=== PATIENT | female | born 1955 | race Caucasian/White ===

== ENCOUNTER 2018-11-12 06:27 | Day surgery (SDC) | payer BC ==
[~2018-11-12] VITALS: Ht 167.6 cm; Wt 81.8 kg
[2018-11-12 07:11] VITALS: Ht 167.6 cm; Wt 81.8 kg
[2018-11-12] MEDS ORDERED: ZOC10 PO (07:23)
[2018-11-12] MEDS ORDERED: MELO7.5O PO (07:23)
[2018-11-12] MEDS ORDERED: LEVO100T8 PO (07:23)
[2018-11-12] MEDS ORDERED: FOLI-49 PO (07:23)
[2018-11-12] MEDS ORDERED: HYDR12.58 PO (07:23)
[2018-11-12] MEDS ORDERED: METF100010 PO (07:23)
[2018-11-12] MEDS ORDERED: METO-448 PO (07:23)
--- NOTE | 2018-11-12 07:26 | PREAC ---
Date/Time of Note Date/Time of Note DATE: 11/12/18 TIME: 07:25 Anesthesia Eval and Record Evaluation Time Pre-Procedure Interview DATE: 11/12/18 TIME: 07:25 Age 63 Sex female NPO: 8 hrs Preoperative diagnosis colon cancer screening Planned procedure colonoscopy Past Medical History Past Medical History: Includes Cardio: HTN, Dyslipidemia Endo: Diabetes Musculoskeletal: Osteoarthritis Surgery & Anesthesia Issues No known issue Meds Anticoagulation: No Beta Shelia within 24 hr: Yes Reason Beta Shelia not given: Bradycarida, Hypotension Reported Medications Meloxicam* (Meloxicam*) 7.5 Mg/5 Ml Oral.susp, 7.5 MG PO DAILY, #150 ML 11/12/18 Hydrochlorothiazide* (Hydrochlorothiazide*) 12.5 Mg Tablet, 12.5 MG PO DAILY, #30 TAB 11/12/18 Folic Acid* (Folic Acid*) 1 Mg Tablet, 1 MG PO DAILY, TAB 11/12/18 Levothyroxine Sodium* (Levothyroxine Sodium*) 100 Mcg Tablet, 100 MCG PO BEFORE BREAKFAST, #30 TAB 11/12/18 Metoprolol Tartrate* (Lopressor*) 25 Mg Tab, 25 MG PO DAILY, #60 TAB 11/12/18 Simvastatin (Simvastatin) 10 Mg Tablet, 10 MG PO QHS, #30 TAB 11/12/18 Metformin Hcl* (Metformin Hcl*) 1,000 Mg Tablet, 1000 MG PO WITH BREAKFAST DINNE, #30 TAB 11/12/18 Meds reviewed: Yes Allergies Coded Allergies: No Known Allergies (Verified Allergy, Unknown, 10/02/07) Allergies Reviewed: Yes Labs/Studies Labs Reviewed: Reviewed by anesthesiologist test: N/A Pre-procedure Exam Airway: Adequate mouth opening, Adequate thyromental dist Mallampati: Mallampati II Teeth: Normal Lung: Normal Heart: Normal ASA Physical Status ASA physical status: 2 Emergency: None Planned Anesthetic General/MAC: Mask Planned Pain Management Parenteral pain med Pre-operative Attestations Prior to commencing anesthesia and surgery, the patient was re-evaluated, there was verification of: *The patient's identity *The results of appropriate recent lab work and preoperative vital signs *The above evaluation not changing prior to induction *Anesthetic plan, risk benefits, alternative and complications discussed with pa tient/family; questions answered; patient/family understands, accepts and wishes to proceed. Show Card Writer used MANUEL MORTON MD Nov 12, 2018 07:26
[2018-11-12] MEDS ORDERED: LIDOCAINE 2% (SDV) 5 ML INJ ONE (07:30)
[2018-11-12] MEDS ORDERED: ONDANSETRON 4 MG INJ IV PRN (07:30)
[2018-11-12] MEDS ORDERED: PROPOFOL 40 ML ONE (07:30)
[2018-11-12 07:40] VITALS: BP 158/73; PULSE 115; RESP 20
--- NOTE | 2018-11-12 08:40 | PAC ---
Date/Time of Note Date/Time of Note DATE: 11/12/18 TIME: 08:40 Post-Anesthesia Notes Post-Anesthesia Note Last documented vital signs Vital Signs Date Temp Pulse Resp B/P (MAP) Pulse Ox O2 O2 Flow FiO2 Time Delivery Rate 11/12/18 97.9 115 20 158/73 100 Room Air 07:40 (101) Activity: WNL Respiratory function: WNL Cardiovascular function: WNL Mental status: Baseline Pain reasonably controlled: Yes Hydration appropriate: Yes Nausea/Vomiting absent: Yes Comments BP: 12/59 HR: 68 RR: 15 T: 98 SaO2: 100% MANUEL MORTON MD Nov 12, 2018 08:40
[2018-11-12 09:09] VITALS: BP 122/70; PULSE 64; RESP 18
== END 2018-11-12 10:38 | disposition home or self-care (01) ==
LOC: GIL 06:27
PROVIDERS: ATTEND Internal Medicine Gastroenterology
DX: Z12.11 Encounter for screening for malignant neoplasm of colon (principal); D12.0 Benign neoplasm of cecum; K57.30 Diverticulosis of large intestine without perforation or abscess without bleeding; I10 Essential (primary) hypertension; E78.5 Hyperlipidemia, unspecified; E11.9 Type 2 diabetes mellitus without complications
CPT/HCPCS: 45380; 82962; 88305; Z7610